=== PATIENT | male | born 1965 | race Caucasian/White ===

== ENCOUNTER 2017-02-01 02:24 | Emergency (ER) | payer BC, OTHER ==
[~2017-02-01] VITALS: Ht 177.8 cm; Wt 81.6 kg
--- NOTE | 2017-02-01 02:35 | NUR ---
Patient to ER bed 6 to gown for evaluation. Side rails up. Assumed care of pt.
[2017-02-01 03:02] VITALS: BP 120/73; PULSE 56; RESP 18; TEMP 97; O2SAT 96
--- NOTE | 2017-02-01 03:03 | NUR ---
Pt. presented to ED with c/o lower back pain after "lifting something heavy a few days ago, but has increasingly gotten worst where I can't move". -SOB
--- NOTE | 2017-02-01 03:37 | NUR ---
ER at bedside examining patient.
[2017-02-01] MEDS ORDERED: DIAZEPAM 10 MG/2 ML DISP.SYRIN IM ONE (03:45)
[2017-02-01] MEDS ORDERED: KETOROLAC TROMETHAMINE 60 MG/2 ML VIAL IM ONE (03:45)
[2017-02-01] MEDS ORDERED: MORPHINE 4 MG/ML INJ. SYRINGE IM ONE (05:15)
[2017-02-01 06:18] VITALS: BP 115/71; PULSE 62; RESP 18; TEMP 97; O2SAT 96
--- NOTE | 2017-02-01 06:18 | NUR ---
Patient given written and verbal discharge instructions and verbalizes understanding. ER MD discussed with patient the results and treatment provided. Patient in stable condition. ID arm band removed. Rx of Motrin, [place], and Valium given. Patient educated on pain management and to follow up with PMD. Pain Scale 4/10 Opportunity for questions provided and answered.
== END 2017-02-01 06:18 | disposition home or self-care (01) ==
LOC: SED 02:24
DX: M54.5 Low back pain (principal)
CPT/HCPCS: 96372; 99284; J1885; J2270; J3360